=== PATIENT | female | born 1955 | race Caucasian/White ===

== ENCOUNTER 2019-02-05 22:12 | Emergency (ER) | payer MEDICARE, OTHER ==
[~2019-02-05] VITALS: Ht 160 cm; Wt 75.0 kg
[2019-02-05 22:28] VITALS: Ht 160 cm; Wt 75.0 kg
[2019-02-05] MEDS ORDERED: morphine 4 MG/ML VIAL IM STA (23:47)
[2019-02-05] MEDS ORDERED: KETOROLAC 30 MG INJ IM STA (23:47)
--- NOTE | 2019-02-05 23:47 | ERD ---
ER Documentation Chief Complaint Chief Complaint LT knee pain. denies trauma/fall. states pulled tendon. norco 1 hr ago. HPI This is a 63-year-old female who was brought in by her daughter here in emergency department with complaints of left knee pain. Stated that she felt a popping sound while she was walking, felt a twist to her left knee. Stated that she just had an MRI last September 2018 for left knee pain that is chronic. LMP: Denies headache, head injury, loss of consciousness, dizziness, neck pain, neck stiffness, throat pain, difficulty swallowing, difficulty breathing lying flat, shoulder pain, chest pain, back pain, abdominal pain, nausea, vomiting, constipation, diarrhea, urinary symptoms, or possibility being , loss of bowel and bladder control, numbness or tingling sensation, calf pain, recent travel, recent major surgery in the last 3 weeks, calf pain, recent long travel, recent exposure to any illness, recent antibiotic use in the last 3 months, fever, chills, seizures. Past medical history: Left knee chronic pain. Surgical history: Social: Denies smoking, use of alcoholic beverages, use of illegal drugs. ROS All systems reviewed and are negative except as per history of present illness. Medications Home Meds Active Scripts Omeprazole* (Omeprazole*) 40 Mg Capsule.dr, 40 MG PO DAILY, #30 CAP Prov:PASILABAN,KLAR F 02/06/19 Ibuprofen* (Motrin*) 800 Mg Tab, 800 MG PO Q6H PRN for PAIN AND OR ELEVATED TEMP, #30 TAB Prov:PASILABAN,KLAR F 02/06/19 Allergies Allergies: Coded Allergies: No Known Drug Allergies (Verified Allergy, Unknown, 02/05/19) Physical Exam Vitals Vital Signs Date Temp Pulse Resp B/P (MAP) Pulse Ox O2 O2 Flow FiO2 Time Delivery Rate 02/06/19 98.0 64 17 158/87 98 Room Air 01:50 (110) 02/05/19 98.7 88 22 173/86 100 22:28 (115) Physical Exam Const: No acute distress Head: Atraumatic Eyes: Normal Conjunctiva ENT: Normal External Ears, Nose and Mouth. Neck: Full range of motion. No meningismus. Resp: Clear to auscultation bilaterally Cardio: Regular rate and rhythm, no murmurs Abd: Soft, non tender, non distended. Normal bowel sounds Skin: No petechiae or rashes Back: No midline or flank tenderness Ext: No cyanosis, or edema. Left knee: No obvious swelling. No obvious deformity. Full range of motion but with pain. No skin discoloration. Skin is not warm to touch. Negative Mtz sign. No calf tenderness. Bilateral hips are stable and unremarkable. Right lower extremity is unremarkable. Bilateral pedal pulses are within normal limits. Capillary refills to bilateral lower extremities are less than 2 seconds. No neurovascular deficits. Neur: Awake and alert. No neurological deficits. Psych: Normal Mood and Affect Results 24 hrs Current Medications Medications Dose Sig/Peg Start Time Status Last (Trade) Ordered Route PRN Stop Time Admin Dose Reason Admin Ketorolac 30 mg ONCE STAT 02/05/19 DC 02/06/19 Tromethamine IM 23:47 00:06 (Toradol) 02/05/19 23:49 Morphine 4 mg ONCE STAT 02/05/19 DC 02/06/19 Sulfate IM 23:47 00:07 (morphine) 02/05/19 23:49 Procedures/MDM Case was discussed with my supervising physician, Dr. Sanjeev Paredes who agreed my medical decision making. Diagnostic tests: Left knee x-ray: Negative for evidence of acute fracture or dislocation of the left knee. Treatment: Toradol IM. Morphine IM. Knee immobilizer. Crutches with crutch training was also provided. Re-evaluation: Denies pain. Stated that she feels much better at this time. No calf tenderness. No neurovascular deficit prior to and after the application of knee immobilizer. Patient her daughter stated that they are comfortable going home. Differential diagnosis I have low suspicion for displaced fracture, septic joint, DVT. Final diagnosis: Knee sprain. Prescription: Motrin. Follow-up with PCP in the next 24-48 hours. PCP to do an MRI of the left knee. PCP to refer patient to orthopedic doctor in the next 24-48 hours. Come back here in the emergency department for any new symptoms or any worsening symptoms. All questions and concerns were answered. Patient and family members verbalized understanding and agreed with plan of care. Hemodynamically stable on discharge. Departure Diagnosis: Primary Impression: Knee injury Additional Impression: Knee pain Condition: Stable Additional Instructions: Follow-up with PCP in the next 24-48 hours. PCP to do an MRI of the left knee. PCP to refer patient to orthopedic doctor in the next 24-48 hours. Come back here in the emergency department for any new symptoms or any worsening symptoms. LUIS CARLOS PAK Feb 05, 2019 23:47
[2019-02-06] MEDS ORDERED: IBUP800T48 PO (01:12)
[2019-02-06] MEDS ORDERED: OMEP40CA6 PO (01:12)
[2019-02-06 01:50] VITALS: BP 158/87; PULSE 64; RESP 17
== END 2019-02-06 01:50 | disposition home or self-care (01) ==
LOC: FTE 22:12
DX: S89.92XA Unspecified injury of left lower leg, initial encounter (principal); X50.1XXA Overexertion from prolonged static or awkward postures, initial encounter; Y92.9 Unspecified place or not applicable
CPT/HCPCS: 29505; 73562; 96372; 99284; J1885; J2270